=== PATIENT | male | born 1960 | race Caucasian/White ===

== ENCOUNTER 2022-10-24 10:56 | Observation (INO) | payer OTHER ==
[2022-10-24 11:32] LABS: #Eosinphils 0.1 thou/uL (0.0-0.7); #Monocytes 0.5 thou/uL (0.11-0.59); #Neutrophils 3.9 thou/uL (1.40-6.50); %Basophils 0.6 % (0.0-1.0); %Lymphocytes 18.3 % (21.0-51.0); %Monocytes 8.5 % (0.0-10.0); %Neutrophils 70.6 % (42.0-75.0); Hemoglobin 14.3 g/dL (14.0-18.0); Mean Corpuscular HGB CONC 33.4 g/dL (32.0-36.0); Mean Corpuscular Hemoglobin 31.9 pg (27.0-31.0); Mean Corpuscular Volume 95.6 fl (78.0-98.0); Mean Platelet Volume 7.5 fL (7.4-10.4); Platelet Count 665 10x3/uL (130-400); RBC Distribution Width 14.7 % (11.5-14.5); Red Blood Cell (RBC) Count 4.47 mill/uL (4.70-6.10); White Blood Cell (WBC) Count 5.5 10x3/uL (4.8-10.8)
[2022-10-24 11:52] LABS: ALT (SGPT) 41 U/L (8-55); AST (SGOT) 23 U/L (5-34); Albumin 4.7 g/dL (3.4-4.8); Alkaline Phosphatase 71 U/L (40-110); Anion Gap 13 mmol/L (10-20); BUN (Urea Nitrogen) 14 mg/dL (8.4-25.7); Bilirubin, Total 0.7 mg/dL (0.2-1.2); Calc. Creatinine Clearance 0 mL/min (70-130); Calcium 9.9 mg/dL (7.8-10.44); Carbon Dioxide 23 mmol/L (23-31); Chloride 106 mmol/L (98-107); Estimated GFR 91; Globulin 2.7 g/dL (2.4-3.5); Glucose 109 mg/dL (80-115); Potassium 4.4 mmol/L (3.5-5.1); Protein, Total 7.4 g/dL (5.8-8.1); Sodium 138 mmol/L (136-145)
[2022-10-24] MEDS ORDERED: Aspirin Chewable 81 MG TAB ONE (13:50)
[2022-10-24] MEDS ORDERED: Nitroglycerin 0.4 MG TAB 1 EACH ONE (13:50)
[2022-10-24] MEDS ORDERED: Nitroglycerin 2% Ointment 1 INCH/1 GM Packet ONE (13:50)
[2022-10-24] MEDS ORDERED: Morphine 4 MG/ML VIAL ONE (14:33)
[2022-10-24] MEDS ORDERED: Nitroglycerin 0.4 MG TAB (25 Tab Bottle) SL PRN (16:11)
[2022-10-24] MEDS ORDERED: Ondansetron ODT 4 MG TAB PO PRN (16:13)
[2022-10-24] MEDS ORDERED: Senokot S 8.6-50 MG TAB PO PRN (16:13)
[2022-10-24 16:50] LABS: Troponin I Less than 0.010 ng/mL (< 0.028)
[2022-10-24 19:06] VITALS: BMI 40.1
[2022-10-24] MEDS: Famotidine 20 MG TAB PO SCH (20:21)
[2022-10-24 21:02] LABS: Troponin I Less than 0.010 ng/mL (< 0.028)
[2022-10-25] MEDS ORDERED: HYDROcodone/Acetaminophen 5/325 mg Tablet PO PRN (00:36)
[2022-10-25] MEDS ORDERED: Acetaminophen 500 MG TAB PO PRN (00:36)
[2022-10-25 05:16] LABS: #Eosinphils 0.1 thou/uL (0.0-0.7); #Lymphocytes 1.4 thou/uL (1.20-3.40); #Monocytes 0.5 thou/uL (0.11-0.59); #Neutrophils 3.5 thou/uL (1.40-6.50); %Basophils 0.6 % (0.0-1.0); %Eosinophils 2.1 % (0.0-10.0); %Lymphocytes 25.2 % (21.0-51.0); %Monocytes 9.8 % (0.0-10.0); %Neutrophils 62.3 % (42.0-75.0); Mean Corpuscular HGB CONC 34.1 g/dL (32.0-36.0); Mean Corpuscular Hemoglobin 32.7 pg (27.0-31.0); Mean Platelet Volume 7.7 fL (7.4-10.4); Platelet Count 516 10x3/uL (130-400); RBC Distribution Width 14.8 % (11.5-14.5); Red Blood Cell (RBC) Count 3.97 mill/uL (4.70-6.10); White Blood Cell (WBC) Count 5.6 10x3/uL (4.8-10.8)
[2022-10-25 05:26] LABS: Anion Gap 13 mmol/L (10-20); BUN (Urea Nitrogen) 17 mg/dL (8.4-25.7); Calc. Creatinine Clearance 161 mL/min (70-130); Calcium 9.1 mg/dL (7.8-10.44); Carbon Dioxide 22 mmol/L (23-31); Chloride 107 mmol/L (98-107); Estimated GFR 96; Glucose 104 mg/dL (80-115); Potassium 4.2 mmol/L (3.5-5.1); Sodium 138 mmol/L (136-145)
[2022-10-25] MEDS: Levothyroxine Sodium 88 MCG TAB PO SCH (07:46)
[2022-10-25] MEDS ORDERED: Aspirin Chewable 81 MG TAB PO SCH (09:00)
[2022-10-25] MEDS: Aspirin 81 mg Enteric Coated Tablet PO SCH (10:58)
[2022-10-25] MEDS: Famotidine 20 MG TAB PO SCH ×2 (11:00→20:03)
[2022-10-25] MEDS: Lisinopril 2.5 MG TAB PO SCH (11:00)
[2022-10-25] MEDS: Clopidogrel Bisulfate 75 MG TAB PO SCH (11:39)
[2022-10-25] MEDS ORDERED: Rosuvastatin 20 MG TAB PO SCH (21:00)
[2022-10-26] MEDS: Levothyroxine Sodium 88 MCG TAB PO SCH (07:24)
[2022-10-26] MEDS: Lisinopril 2.5 MG TAB PO SCH (09:22)
[2022-10-26] MEDS: Famotidine 20 MG TAB PO SCH (09:23)
[2022-10-26] MEDS: Aspirin 81 mg Enteric Coated Tablet PO SCH (09:23)
[2022-10-26] MEDS: Clopidogrel Bisulfate 75 MG TAB PO SCH (11:09)
[2022-10-26 13:06] VITALS: BP 119/65; TEMP 98.6
== END 2022-10-26 13:57 | disposition home or self-care (01) ==
LOC: ERS 10:56 → ERHOLD 14:59 → 2SW 18:59
PROVIDERS: ADMIT Internal Medicine; ATTEND Internal Medicine
DX: R07.89 Other chest pain (principal); E78.5 Hyperlipidemia, unspecified; I11.9 Hypertensive heart disease without heart failure; G47.33 Obstructive sleep apnea (adult) (pediatric); F17.210 Nicotine dependence, cigarettes, uncomplicated; E03.9 Hypothyroidism, unspecified; I77.9 Disorder of arteries and arterioles, unspecified; E66.01 Morbid (severe) obesity due to excess calories; Z68.41 Body mass index [BMI] 40.0-44.9, adult; Z79.82 Long term (current) use of aspirin; Z79.890 Hormone replacement therapy; Z79.899 Other long term (current) drug therapy; Z20.822 Contact with and (suspected) exposure to COVID-19
CPT/HCPCS: 36415; 71045; 78452; 80048; 80053; 83690; 84484; 85025; 85379; 93005; 93017; 93880; 96372; 96374; A9500; G0378; J0153; J1650; J2270; U0003; U0005